=== PATIENT | male | born 1990 | race Two or more races ===

== ENCOUNTER 2022-09-04 13:46 | Emergency (ER) | payer OTHER ==
[~2022-09-04] VITALS: Ht 167.6 cm; Wt 102.1 kg
[2022-09-04] MEDS ORDERED: ACETAMINOPHEN ES 500 MG TABLET ONE (14:27)
[2022-09-04] MEDS ORDERED: ACETAMINOPHEN ES 500 MG TABLET PO ONE (14:30)
--- NOTE | 2022-09-04 14:50 | NUR ---
c/c weakness. A/O x 3
--- NOTE | 2022-09-04 15:11 | NUR ---
Patient discharged to home in stable condition. Written and verbal after care instructions given. Patient verbalizes understanding of instruction.
[2022-09-04 15:12] VITALS: BP 144/80
== END 2022-09-04 15:12 | disposition home or self-care (01) ==
LOC: ER 13:51
DX: R53.1 Weakness (principal)
CPT/HCPCS: 71045-TC; 82962-TC